=== PATIENT | female | born 1995 | race Caucasian/White ===

== ENCOUNTER 2017-09-13 11:17 | Emergency (ER) | payer MEDICAID, SELFPAY ==
--- NOTE | 2017-09-13 12:29 | RAD ---
LUMBAR SPINE TWO VIEWS: History: Low back pain. FINDINGS/IMPRESSION: No fracture, subluxation, or bony destruction is identified. POS: [facility]
[2017-09-13 12:50] LABS: Bilirubin Negative (Negative); Blood, Urine Negative (Negative); Clarity CLEAR (Clear); Glucose, Urine (Dipstick) Negative (Negative); Leukocyte Moderate (Negative); Nitrite Negative (Negative); Protein, Urine (Dipstick) Negative (Neg-Trace); Specific Gravity, Urine 1.016 (1.002-1.036); pH, Urine 7.5 (5.0-9.0)
[2017-09-13 12:54] LABS: Bacteria/HPF 2+ HPF (None Seen); Hyaline Casts/LPF 0-3 HYALINE CAST LPF (0-3 Hyaline); RBC/HPF 0-3 HPF (0-3); Squamous Epithelial 0-3 HPF (0-3); WBC/HPF 21-50 HPF (0-3)
[2017-09-13 12:55] LABS: Pregnancy Test - Urine (BHCG) Negative (Negative); Pregu Control Background? CLEAR/WHITE (CLR/WHITE); Pregu Control Bar Appear? YES (CONTROL BAR); Specific Gravity 1.016 (1.002-1.036)
[2017-09-13] MEDS ORDERED: Acetaminophen/Codeine 30-300mg Tablet ONE (14:22)
[2017-09-13] MEDS ORDERED: cefTRIAXone\\ROCEPHIN 500 MG VIAL ONE (14:23)
[2017-09-13] MEDS ORDERED: Ketorolac Tromethamine 60 MG/2 ML VIAL ONE (14:23)
[2017-09-13] MEDS ORDERED: Lidocaine 1% PF 5 ML VIAL ONE (14:23)
== END 2017-09-13 16:45 | disposition home or self-care (01) ==
LOC: ERS 11:17
DX: N39.0 Urinary tract infection, site not specified (principal); E28.2 Polycystic ovarian syndrome
CPT/HCPCS: 72100; 81003; 81015; 81025; 96372; J0696; J1885; J2001

== ENCOUNTER 2018-11-17 14:47 | Emergency (ER) | payer SELFPAY ==
[2018-11-17] MEDS ORDERED: Proparacaine 0.5% Opth 15 ML BOT ONE (15:32)
[2018-11-17 16:05] LABS: #Basophils 0.1 thou/uL (0.0-0.2); #Eosinphils 0.2 thou/uL (0.0-0.7); #Lymphocytes 1.7 thou/uL (1.20-3.40); #Monocytes 0.6 thou/uL (0.11-0.59); #Neutrophils 5.6 thou/uL (1.40-6.50); %Basophils 0.8 % (0.0-1.0); %Eosinophils 2.9 % (0.0-10.0); %Lymphocytes 21.1 % (21.0-51.0); %Monocytes 7.4 % (0.0-10.0); %Neutrophils 67.8 % (42.0-75.0); Hemoglobin 16.1 g/dL (12.0-16.0); Mean Corpuscular HGB CONC 33.2 g/dL (32.0-36.0); Mean Corpuscular Hemoglobin 28.3 pg (27.0-31.0); Mean Corpuscular Volume 85.3 fL (78.0-98.0); Mean Platelet Volume 8.3 fL (7.4-10.4); Platelet Count 256 thou/uL (130-400); RBC Distribution Width 13.2 % (11.5-14.5); Red Blood Cell (RBC) Count 5.68 mill/uL (4.20-5.40); White Blood Cell (WBC) Count 8.3 thou/uL (4.8-10.8)
[2018-11-17 16:18] LABS: BHCG - Serum Negative (NEGATIVE); Pregs Control Background? CLEAR/WHITE (CLR/WHITE); Pregs Control Bar Appear? YES (CONTROL BAR)
[2018-11-17 16:21] LABS: Anion Gap 12 mmol/L (10-20); BUN (Urea Nitrogen) 7 mg/dL (7.0-18.7); Calc. Creatinine Clearance 0 mL/min (70-130); Calcium 9.4 mg/dL (7.8-10.44); Carbon Dioxide 25 mmol/L (22-29); Chloride 108 mmol/L (98-107); Estimated GFR-MDRD Greater than 90; Glucose 77 mg/dL (70-105); Sodium 141 mmol/L (136-145)
--- NOTE | 2018-11-17 16:35 | CT ---
CT BRAIN WITHOUT CONTRAST: HISTORY: Headache FINDINGS: No evidence of acute infarct, hemorrhage, midline shift or abnormal extra-axial fluid collections is seen. The ventricular size is appropriate and the basilar cisterns are patent. The bony calvarium is intact. The visualized paranasal sinuses and mastoid air cells are well aerated. IMPRESSION: No CT evidence of acute intracranial process.
[2018-11-17] MEDS ORDERED: diphenhydrAMINE 50 MG/ML VIAL ONE (16:44)
[2018-11-17] MEDS ORDERED: Metoclopramide HCl 10 MG/2 ML VIAL ONE (16:44)
[2018-11-17] MEDS ORDERED: Ketorolac Tromethamine 30 MG/ML VIAL ONE (17:24)
== END 2018-11-17 18:36 | disposition home or self-care (01) ==
LOC: SCSER 14:47
DX: R51 Headache (principal)
CPT/HCPCS: 70450; 80048; 84703; 85025; 96361; 96365; 96375; J1200; J1885; J2765

== ENCOUNTER 2019-01-02 14:59 | Emergency (ER) | payer SELFPAY ==
--- NOTE | 2019-01-02 15:12 | RAD ---
EXAM: XR Wrist 3 Rt View STANDARD PROVIDED CLINICAL HISTORY: Pain status post injury COMPARISON: 11/08/2016 FINDINGS: Increased density and flattening of the lunate compatible with sequela of prior osteonecrosis is rede monstrated, appearing similar to the prior examination. There is no evidence for fracture or other acute osseous abnormality. Alignment appears anatomic. Joint spaces appear preserved. Surgical clips overlie the dorsum of the wrist. IMPRESSION: No evidence for an acute osseous abnormality. If there is persistent clinical concern, conservative m anagement and follow-up imaging advised.
== END 2019-01-02 16:21 | disposition home or self-care (01) ==
LOC: ERS 14:59
DX: S63.501A Unspecified sprain of right wrist, initial encounter (principal); F17.290 Nicotine dependence, other tobacco product, uncomplicated; X50.9XXA Other and unspecified overexertion or strenuous movements or postures, initial encounter

== ENCOUNTER 2022-09-17 12:17 | Emergency (ER) | payer SELFPAY ==
[2022-09-17] MEDS ORDERED: Acetaminophen 500 MG TAB ONE (12:43)
== END 2022-09-17 13:05 | disposition home or self-care (01) ==
LOC: ERS 12:17
DX: K04.7 Periapical abscess without sinus (principal); K08.89 Other specified disorders of teeth and supporting structures; F17.290 Nicotine dependence, other tobacco product, uncomplicated
CPT/HCPCS: 99282

== ENCOUNTER 2023-01-03 18:50 | Emergency (ER) | payer SELFPAY ==
[2023-01-03] MEDS ORDERED: HYDROcodone/Acetaminophen 10/325 mg Tablet ONE (19:29)
== END 2023-01-03 20:20 | disposition home or self-care (01) ==
LOC: ERS 18:50
DX: S63.501A Unspecified sprain of right wrist, initial encounter (principal); F17.290 Nicotine dependence, other tobacco product, uncomplicated; W19.XXXA Unspecified fall, initial encounter

== ENCOUNTER 2023-09-28 21:19 | Emergency (ER) | payer SELFPAY | END 2023-09-29 03:19 | disposition home or self-care (01) | LOC: ERS 21:19 | DX: S46.811A Strain of other muscles, fascia and tendons at shoulder and upper arm level, right arm, initial encounter (principal); X50.0XXA Overexertion from strenuous movement or load, initial encounter; Y93.89 Activity, other specified; Y92.69 Other specified industrial and construction area as the place of occurrence of the external cause | CPT/HCPCS: 36415; 80053; 85025; 96372; 99283; J1885 ==

== ENCOUNTER 2024-03-05 19:00 | Emergency (ER) | payer SELFPAY ==
[~2024-03-05 19:00] MED LIST: Iopamidol-370 76% 500 ML MDV (1 ML CHARGE) ONE
[2024-03-05 19:47] LABS: #Basophils 0.04 10x3/uL (0.0-0.2); %Basophils 0.5 % (0.0-1.0); %Eosinophils 0.6 % (0.0-10.0); %Lymphocytes 25.5 % (21.0-51.0); %Monocytes 5.6 % (0.0-10.0); %Neutrophils 67.6 % (42.0-75.0); Hematocrit 47.1 % (36.0-47.0); Hemoglobin 15.6 g/dL (12.0-16.0); Mean Corpuscular HGB CONC 33.1 g/dL (32.0-36.0); Mean Corpuscular Hemoglobin 29.3 pg (27.0-31.0); Mean Corpuscular Volume 88.5 fL (78.0-98.0); Mean Platelet Volume 9.6 fL (7.4-10.4); Platelet Count 295 10x3/uL (130-400); RBC Distribution Width 13.2 % (11.5-14.5); Red Blood Cell (RBC) Count 5.32 mill/uL (4.20-5.40)
[2024-03-05 19:59] LABS: BHCG - Serum Negative (NEGATIVE); Pregs Control Background? CLEAR/WHITE (CLR/WHITE); Pregs Control Bar Appear? YES (CONTROL BAR)
[2024-03-05 20:07] LABS: ALT (SGPT) 53 U/L (8-55); AST (SGOT) 31 U/L (5-34); Albumin 3.7 g/dL (3.5-5.0); Alkaline Phosphatase 93 U/L (40-110); Anion Gap 9 mmol/L (10-20); BUN (Urea Nitrogen) 7 mg/dL (7.0-18.7); Bilirubin, Total 0.4 mg/dL (0.2-1.2); Calc. Creatinine Clearance 0 mL/min (70-130); Calcium 9.7 mg/dL (7.8-10.44); Carbon Dioxide 29 mmol/L (22-29); Chloride 107 mmol/L (98-107); Estimated GFR 104; Globulin 4.3 g/dL (2.4-3.5); Glucose 90 mg/dL (70-105); Potassium 3.9 mmol/L (3.5-5.1); Sodium 141 mmol/L (136-145)
[2024-03-05 21:30] LABS: Bacteria/HPF None Seen HPF (None Seen); Bilirubin Negative (Negative); Blood, Urine Negative (Negative); CAUTI Indications for Culture Alt mental st,lethar; Clarity Clear (Clear); Glucose, Urine (Dipstick) Normal (Negative); Ketone, Urine Negative (Negative); Leukocyte 25 Leu/uL (Negative); Nitrite Negative (Negative); Protein, Urine (Dipstick) Negative (Neg-Trace); RBC/HPF 0-3 HPF (0-3); Specific Gravity, Urine 1.049 (1.002-1.036); Squamous Epithelial 0-3 HPF (0-3); Urobilinogen Normal mg/dL (Less than 2)
[2024-03-05 21:33] LABS: Urine Culture Reflex No No
[2024-03-05] MEDS ORDERED: Ketorolac Tromethamine 30 MG (1 mL) VIAL ONE (21:46)
[2024-03-05] MEDS ORDERED: Ondansetron PF 4 MG/2 ML Vial ONE (21:46)
== END 2024-03-05 21:51 | disposition home or self-care (01) ==
LOC: ERS 19:00
DX: K63.89 Other specified diseases of intestine (principal); F17.290 Nicotine dependence, other tobacco product, uncomplicated; Z55.6 Problems related to health literacy
CPT/HCPCS: 36415; 74177; 80053; 81001; 84703; 85025; 96374; 96375; J1885; J2405; Q9967